=== PATIENT | male | born 1985 | race Caucasian/White ===

== ENCOUNTER 2016-08-01 09:23 | Outpatient (RCR) | payer OTHER ==
[~2016-08-01 09:23] MED LIST: CYCL10TA9 PO; HYDR-1231 PO; IBUP800T26 PO; PRD20T PO
== END 2016-10-30 | disposition home or self-care (01) ==
LOC: LAB 09:23
PROVIDERS: ATTEND Urology
DX: Z30.8 Encounter for other contraceptive management (principal)
CPT/HCPCS: 89321

== ENCOUNTER → 2019-10-14 | Day surgery (SDC) | payer OTHER ==
[~2019-10-14] VITALS: Ht 177.8 cm; Wt 122.7 kg
[~2019-10-14] MED LIST changes: +LIDOCAINE 1% INJ 20 ML 20 ML VIAL INJ ONE
--- NOTE | 2019-10-14 12:47 | Diagnostic Imaging Report ---
INDICATION: Enlarged left neck lymph node. Patient presents for ultrasound-guided biopsy. FINDINGS: Patient was brought to the procedure room and placed on the table in a supine position with head turned towards the right. Ultrasound imaging of the left neck was performed to evaluate appropriate entry site. The enlarged upper left neck lymph node adjacent to the submandibular gland and just deep to the sternocleidomastoid muscle was visualized. The skin of the left neck was prepped and draped in the usual sterile fashion. A small amount of 1% lidocaine was utilized for local anesthesia. A total of four passes were made into the lymph node utilizing a 20-gauge Bard needle. Core biopsies were obtained. Needle was removed and hemostasis was obtained using manual compression. Patient tolerated the procedure well and left the department in stable condition. IMPRESSION: Ultrasound-guided core biopsy of enlarged left neck lymph node. Pathology results are currently pending. Dictated by: Dictated on workstation # [id number]
== END | disposition home or self-care (01) ==
LOC: RAD 09:25
PROVIDERS: ATTEND Otolaryngology
DX: R59.0 Localized enlarged lymph nodes (principal)

== ENCOUNTER → 2021-11-20 | Outpatient (CLI) | payer OTHER ==
[~2021-11-20] MED LIST changes: -LIDOCAINE 1% INJ 20 ML 20 ML VIAL INJ ONE
--- NOTE | 2021-11-20 16:03 | Diagnostic Imaging Report ---
PROCEDURE: MRI left upper extremity without contrast. TECHNIQUE: Multiplanar, multisequence non contrast-enhanced MRI of the left upper extremity was accomplished. INDICATION: Left shoulder pain, history of rotator cuff repair in 2014 and 2019. Persistent with left shoulder pain. COMPARISON: None FINDINGS: No acute fracture is seen in the left shoulder. Alignment appears normal. There is no joint effusion. There are small low-grade partial-thickness tears at the insertion of the infraspinatus tendon at the articular surface. The supraspinatus tendon also demonstrates small low-grade partial-thickness tears distally at the insertion. The teres minor tendon is intact. The subscapularis tendon is intact. No muscular atrophy is seen. The long head of the biceps tendon is normal in course and signal. The glenoid labrum is suboptimally evaluated in the absence of intra-articular contrast, but no para labral cyst is seen. The acromion has a curved undersurface. 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 There are mild degenerative changes in the acromioclavicular joint. The coracoclavicular and coracoacromial ligaments are intact. Soft tissues about the left shoulder demonstrate no acute abnormality. IMPRESSION: 1. Small low-grade partial-thickness tears of the supraspinatus and infraspinatus tendons with no high-grade partial-thickness or full-thickness rotator cuff tear seen. 2. Os acromiale with associated edema/fluid. Dictated by: Dictated on workstation # [id number]
== END ==
LOC: RAD 14:00
PROVIDERS: ATTEND Hospitalist
DX: M75.112 Incomplete rotator cuff tear or rupture of left shoulder, not specified as traumatic (principal); S46.912A Strain of unspecified muscle, fascia and tendon at shoulder and upper arm level, left arm, initial encounter; Z98.890 Other specified postprocedural states; X58.XXXA Exposure to other specified factors, initial encounter
CPT/HCPCS: 73221